=== PATIENT | male | born 1980 | race Caucasian/White ===

== ENCOUNTER 2019-06-29 10:26 | Outpatient (CLI) | payer OTHER ==
--- NOTE | 2019-06-29 12:57 | ULT ---
ULTRASOUND SOFT TISSUE OTHER: (Right axilla) HISTORY: A 38-year-old male with palpable abnormality in the right axilla. FINDINGS/IMPRESSION: Region of palpable concern in the right axilla demonstrates a 5 x 4 x 6 mm well-circumscribed nonshad owing solid-appearing nodule of unknown etiology. Clinical/pathologic correlation is recommended. POS: [facility]
== END 2019-06-29 10:27 | disposition home or self-care (01) ==
LOC: BICULT 10:26
PROVIDERS: ATTEND Student in an Organized Health Care Education/Training Program
DX: R59.0 Localized enlarged lymph nodes (principal)
CPT/HCPCS: 76999

== ENCOUNTER 2020-08-09 17:11 | Emergency (ER) | payer OTHER ==
[2020-08-09 17:43] LABS: #Lymphocytes 1.5 thou/uL (1.20-3.40); #Monocytes 0.5 thou/uL (0.11-0.59); #Neutrophils 14.7 thou/uL (1.40-6.50); %Basophils 0.1 % (0.0-1.0); %Eosinophils 0.2 % (0.0-10.0); %Lymphocytes 8.9 % (21.0-51.0); %Monocytes 2.8 % (0.0-10.0); Hemoglobin 16.1 g/dL (14.0-18.0); Mean Corpuscular HGB CONC 33.7 g/dL (32.0-36.0); Mean Corpuscular Hemoglobin 29.6 pg (27.0-31.0); Mean Corpuscular Volume 87.7 fL (78.0-98.0); Mean Platelet Volume 8.4 fL (7.4-10.4); Platelet Count 264 thou/uL (130-400); RBC Distribution Width 13.2 % (11.5-14.5); Red Blood Cell (RBC) Count 5.46 mill/uL (4.70-6.10); White Blood Cell (WBC) Count 16.7 thou/uL (4.8-10.8)
[2020-08-09 18:06] LABS: ALT (SGPT) 24 U/L (8-55); AST (SGOT) 21 U/L (5-34); Albumin 4.6 g/dL (3.5-5.0); Alkaline Phosphatase 95 U/L (40-110); Anion Gap 17 mmol/L (10-20); BUN (Urea Nitrogen) 18 mg/dL (8.9-20.6); Bilirubin, Total 0.5 mg/dL (0.2-1.2); CK (CPK) 178 U/L (30-200); Calc. Creatinine Clearance 0 mL/min (70-130); Calcium 9.9 mg/dL (7.8-10.44); Carbon Dioxide 19 mmol/L (22-29); Chloride 107 mmol/L (98-107); Globulin 4.4 g/dL (2.4-3.5); Glucose 119 mg/dL (70-105); Potassium 4.1 mmol/L (3.5-5.1); Sodium 139 mmol/L (136-145)
[2020-08-09 18:08] LABS: Acetaminophen Less than 6.0 mcg/mL (10.0-30.0); Alcohol Less than 10 mg/dL (Less than 10); Salicylate Less than 8.0 mg/dL (15.0-30.0)
== END 2020-08-09 19:13 ==
LOC: ERS 17:11
DX: F15.10 Other stimulant abuse, uncomplicated (principal); I10 Essential (primary) hypertension
CPT/HCPCS: 80053; 80307; 82550; 85025; 93005

== ENCOUNTER 2021-03-09 21:21 | Emergency (ER) | payer OTHER | END 2021-03-09 22:05 | disposition left against medical advice (07) | LOC: ERS 21:21 | DX: Z53.21 Procedure and treatment not carried out due to patient leaving prior to being seen by health care provider (principal) ==

== ENCOUNTER 2021-08-11 04:52 | Emergency (ER) | payer OTHER ==
[2021-08-11] MEDS ORDERED: Fentanyl 100 MCG/2 ML VIAL ONE (05:03)
[2021-08-11] MEDS ORDERED: Ondansetron PF 4 MG/2 ML Vial ONE (05:03)
[2021-08-11 05:20] LABS: #Eosinphils 0.2 thou/uL (0.0-0.7); #Lymphocytes 3.8 thou/uL (1.20-3.40); #Monocytes 0.8 thou/uL (0.11-0.59); #Neutrophils 10.5 thou/uL (1.40-6.50); %Basophils 0.3 % (0.0-1.0); %Lymphocytes 25.1 % (21.0-51.0); %Neutrophils 68.6 % (42.0-75.0); Hemoglobin 16.2 g/dL (14.0-18.0); Mean Corpuscular HGB CONC 34.1 g/dL (32.0-36.0); Mean Corpuscular Hemoglobin 31.1 pg (27.0-31.0); Mean Corpuscular Volume 91.1 fL (78.0-98.0); Mean Platelet Volume 8.1 fL (7.4-10.4); Platelet Count 301 thou/uL (130-400); RBC Distribution Width 12.1 % (11.5-14.5); Red Blood Cell (RBC) Count 5.22 mill/uL (4.70-6.10); White Blood Cell (WBC) Count 15.3 thou/uL (4.8-10.8)
[2021-08-11 05:41] LABS: ALT (SGPT) 144 U/L (8-55); AST (SGOT) 144 U/L (5-34); Albumin 4.2 g/dL (3.5-5.0); Alcohol Less than 10 mg/dL (Less than 10); Alkaline Phosphatase 91 U/L (40-110); Anion Gap 17 mmol/L (10-20); BUN (Urea Nitrogen) 22 mg/dL (8.9-20.6); Bilirubin, Total 0.4 mg/dL (0.2-1.2); Calc. Creatinine Clearance 0 mL/min (70-130); Calcium 9.7 mg/dL (7.8-10.44); Carbon Dioxide 22 mmol/L (22-29); Chloride 106 mmol/L (98-107); Estimated GFR 51; Globulin 4.1 g/dL (2.4-3.5); Glucose 119 mg/dL (70-105); Potassium 3.6 mmol/L (3.5-5.1); Protein, Total 8.3 g/dL (6.0-8.3); Sodium 141 mmol/L (136-145)
[2021-08-11] MEDS ORDERED: Morphine 4 MG/ML VIAL ONE ×2 (06:12→07:45)
[2021-08-11] MEDS ORDERED: Lidocaine 1% w/Epinephrine 1:100K 20 ML VIAL ONE (06:29)
[2021-08-11] MEDS ORDERED: Bacitracin 1 PK ONE (06:48)
[2021-08-11 07:36] LABS: SARS-CoV-2 NAA Rapid Test Not Detected (NotDetected)
== END 2021-08-11 08:50 | disposition short-term general hospital (02) ==
LOC: ERS 04:52
DX: S32.491A Other specified fracture of right acetabulum, initial encounter for closed fracture (principal); S22.32XA Fracture of one rib, left side, initial encounter for closed fracture; S22.31XA Fracture of one rib, right side, initial encounter for closed fracture; S82.001A Unspecified fracture of right patella, initial encounter for closed fracture; S51.011A Laceration without foreign body of right elbow, initial encounter; S22.018A Other fracture of first thoracic vertebra, initial encounter for closed fracture; I10 Essential (primary) hypertension; F17.210 Nicotine dependence, cigarettes, uncomplicated; V59.9XXA Occupant (driver) (passenger) of pick-up truck or van injured in unspecified traffic accident, initial encounter; Z20.822 Contact with and (suspected) exposure to COVID-19
CPT/HCPCS: 12001; 36415; 70450; 71260; 72125; 72170; 74177; 80053; 80307; 85025; 86850; 86900; 86901; 96374; 96375; 96376; J2270; J2405; J3010; U0002

== ENCOUNTER 2022-02-26 11:51 | Outpatient (CLI) | payer OTHER ==
[2022-02-26 13:15] LABS: #Basophils 0.1 10x3/uL (0.0-0.2); #Eosinphils 0.2 10x3/uL (0.0-0.5); #Monocytes 0.6 10x3/uL (0.0-1.1); #Neutrophils 5.4 10x3/uL (1.5-8.4); %Basophils 0.9 % (0.0-2.0); %Eosinophils 1.7 % (0.0-6.0); %Monocytes 7.3 % (0.0-10.0); %Neutrophils 62.8 % (40.0-75.0); Hemoglobin 13.3 g/dL (13.5-17.5); Mean Corpuscular HGB CONC 32.4 g/dL (32.0-36.0); Mean Corpuscular Hemoglobin 27.3 pg (27.0-33.0); Mean Corpuscular Volume 84.2 fl (81.2-95.1); Mean Platelet Volume 10.4 fl (7.4-10.4); Platelet Count 248 10x3/uL (150-450); RBC Distribution Width 15.1 % (11.5-14.5); Red Blood Cell (RBC) Count 4.87 10x6/uL (4.32-5.72); White Blood Cell (WBC) Count 8.6 10x3/uL (3.5-10.5)
== END 2022-02-26 11:52 | disposition home or self-care (01) ==
LOC: LABBT 11:51
PROVIDERS: ATTEND Specialist
DX: Z01.812 Encounter for preprocedural laboratory examination (principal); D17.79 Benign lipomatous neoplasm of other sites
CPT/HCPCS: 85025

== ENCOUNTER 2022-03-01 08:18 | Day surgery (SDC) | payer OTHER ==
[2022-02-28 14:29] VITALS: BMI 34.0
[2022-03-01] MEDS ORDERED: Acetaminophen 500 MG TAB ONE (08:56)
== END 2022-03-01 09:40 | disposition home or self-care (01) ==
LOC: SDC 08:18
PROVIDERS: ATTEND Specialist
DX: D17.1 Benign lipomatous neoplasm of skin and subcutaneous tissue of trunk (principal); Z53.8 Procedure and treatment not carried out for other reasons; Z79.899 Other long term (current) drug therapy

== ENCOUNTER 2022-05-07 16:20 | Emergency (ER) | payer OTHER ==
[~2022-05-07 16:20] MED LIST: Iopamidol 370 76% 100 ML VIAL ONE
[2022-05-07 16:48] LABS: #Eosinphils 0.1 thou/uL (0.0-0.7); #Lymphocytes 2.6 thou/uL (1.20-3.40); #Monocytes 0.7 thou/uL (0.11-0.59); #Neutrophils 6.3 thou/uL (1.40-6.50); %Basophils 0.5 % (0.0-1.0); %Eosinophils 1.2 % (0.0-10.0); %Neutrophils 64.4 % (42.0-75.0); Hemoglobin 13.1 g/dL (14.0-18.0); Mean Corpuscular HGB CONC 33.1 g/dL (32.0-36.0); Mean Corpuscular Hemoglobin 28.4 pg (27.0-31.0); Mean Corpuscular Volume 85.6 fl (78.0-98.0); Mean Platelet Volume 8.7 fL (7.4-10.4); Platelet Count 241 10x3/uL (130-400); RBC Distribution Width 14.4 % (11.5-14.5); Red Blood Cell (RBC) Count 4.61 mill/uL (4.70-6.10); White Blood Cell (WBC) Count 9.7 10x3/uL (4.8-10.8)
[2022-05-07 17:04] LABS: ALT (SGPT) 16 U/L (8-55); AST (SGOT) 17 U/L (5-34); Albumin 3.7 g/dL (3.5-5.0); Alcohol Less than 10 mg/dL (Less than 10); Alkaline Phosphatase 98 U/L (40-110); Anion Gap 12 mmol/L (10-20); BUN (Urea Nitrogen) 17 mg/dL (8.9-20.6); Bilirubin, Total 0.5 mg/dL (0.2-1.2); Calc. Creatinine Clearance 0 mL/min (70-130); Carbon Dioxide 24 mmol/L (22-29); Chloride 107 mmol/L (98-107); Estimated GFR 62; Globulin 4.3 g/dL (2.4-3.5); Glucose 115 mg/dL (70-105); Lipase 41 U/L (8-78); Potassium 3.7 mmol/L (3.5-5.1); Sodium 139 mmol/L (136-145)
[2022-05-07 17:12] LABS: PTT 24.3 sec (22.9-36.1); Prothrombin Time 13.6 sec (12.0-14.7)
[2022-05-07 17:22] LABS: Actual Bicarbonate (HCO3v) 23 mEq/L (22-28); Base Excess -1.2 mEq/L (-2.0 to +3.0); Calcium, Ionized (venous) 1.07 mmol/L (1.16-1.32); Chloride (VBG) 107 mmol/L (98-106); Hemoglobin (Hb) 13.7 g/dL (13.2-17.3); Potassium (VBG) 3.78 mmol/L (3.70-5.30); pH (venous) 7.42 (7.32-7.43)
[2022-05-07 22:32] LABS: Bacteria/HPF None Seen HPF (None Seen); Bilirubin Negative (Negative); Blood, Urine Negative (Negative); Clarity Clear (Clear); Glucose, Urine (Dipstick) Normal (Negative); Ketone, Urine Negative (Negative); Leukocyte Negative Leu/uL (Negative); Nitrite Negative (Negative); Protein, Urine (Dipstick) 50 mg/dL (Neg-Trace); RBC/HPF 0-3 HPF (0-3); Specific Gravity, Urine 1.031 (1.002-1.036); Squamous Epithelial 0-3 HPF (0-3); Urobilinogen Normal mg/dL (Less than 2); WBC/HPF 0-3 HPF (0-3); pH, Urine 6.5 (5.0-9.0)
[2022-05-07 22:36] LABS: Amphetamine Detected (NotDetected); Barbiturates Screen Not Detected (NotDetected); Benzodiazepine Screen Not Detected (NotDetected); Cocaine Metabolite Screen Not Detected (NotDetected); Methadone Not Detected (NotDetected); Methamphetamine Detected (NotDetected); Opiate Screen Not Detected (NotDetected); Oxycodone Screen Not Detected (NotDetected); Phencyclidine (PCP) Detected (NotDetected); THC/Cannabinoid Screen Detected (NotDetected); Tricyclic Screen Not Detected (NotDetected)
== END 2022-05-07 22:39 | disposition home or self-care (01) ==
LOC: EDBD 16:20 → ERS 16:20 → MERGE 16:20 → ERS 22:39
DX: S06.0X1A Concussion with loss of consciousness of 30 minutes or less, initial encounter (principal); S60.512A Abrasion of left hand, initial encounter; V49.9XXA Car occupant (driver) (passenger) injured in unspecified traffic accident, initial encounter; Z23 Encounter for immunization
CPT/HCPCS: 36415; 70450; 71045; 71260; 72125; 74177; 80053; 80306; 80307; 81003; 81015; 82805; 83605; 83690; 84146; 85025; 85610; 85730; 86850; 86900; 86901; 90471; 96374; G0390; Q9967

== ENCOUNTER 2022-06-24 16:39 | Inpatient (IN) | payer OTHER ==
[2022-06-24 17:28] LABS: #Basophils 0.1 thou/uL (0.0-0.2); #Eosinphils 0.1 thou/uL (0.0-0.7); #Monocytes 0.5 thou/uL (0.11-0.59); #Neutrophils 5.1 thou/uL (1.40-6.50); %Basophils 0.6 % (0.0-1.0); %Eosinophils 1.5 % (0.0-10.0); %Lymphocytes 24.8 % (21.0-51.0); %Monocytes 6.9 % (0.0-10.0); %Neutrophils 65.9 % (42.0-75.0); Hemoglobin 13.2 g/dL (14.0-18.0); Mean Corpuscular HGB CONC 32.1 g/dL (32.0-36.0); Mean Corpuscular Hemoglobin 27.3 pg (27.0-31.0); Mean Corpuscular Volume 85.1 fl (78.0-98.0); Mean Platelet Volume 11.5 fL (7.4-10.4); Platelet Count 243 10x3/uL (130-400); RBC Distribution Width 13.8 % (11.5-14.5); Red Blood Cell (RBC) Count 4.83 mill/uL (4.70-6.10); White Blood Cell (WBC) Count 7.8 10x3/uL (4.8-10.8)
[2022-06-24 17:41] LABS: Prothrombin Time 13.7 sec (12.0-14.7)
[2022-06-24 17:43] LABS: ALT (SGPT) 15 U/L (8-55); AST (SGOT) 21 U/L (5-34); Albumin 3.8 g/dL (3.5-5.0); Alkaline Phosphatase 92 U/L (40-110); Anion Gap 16 mmol/L (10-20); BUN (Urea Nitrogen) 20 mg/dL (8.9-20.6); Bilirubin, Total 0.6 mg/dL (0.2-1.2); Calc. Creatinine Clearance 0 mL/min (70-130); Calcium 8.7 mg/dL (7.8-10.44); Carbon Dioxide 20 mmol/L (22-29); Chloride 107 mmol/L (98-107); Estimated GFR 63; Globulin 3.9 g/dL (2.4-3.5); Glucose 104 mg/dL (70-105); Potassium 3.7 mmol/L (3.5-5.1); Protein, Total 7.7 g/dL (6.0-8.3); Sodium 139 mmol/L (136-145)
[2022-06-24 17:56] LABS: Acetaminophen Less than 10.0 mcg/mL (10.0-30.0); Alcohol Less than 10 mg/dL (Less than 10); CK (CPK) 148 U/L (30-200); Salicylate Less than 8.0 mg/dL (15.0-30.0)
[2022-06-24 18:09] LABS: CellaVision Operator ID LAB.MJL; Platelet Morphology Comment Platelets Normal; RBC Morphology Within Normal Limits
[2022-06-24 18:19] LABS: PTT 24.3 sec (22.9-36.1)
[2022-06-24] MEDS ORDERED: Acetaminophen 325 MG TAB ONE (18:21)
[2022-06-24] MEDS ORDERED: cefTRIAXone (ROCEPHIN) 2 GM VIAL ONE (18:21)
[2022-06-24] MEDS ORDERED: Vancomycin 1 GM/200 ML (FROZEN) BAG ONE (18:50)
[2022-06-24 20:11] LABS: Bacteria/HPF None Seen HPF (None Seen); Bilirubin Negative (Negative); Blood, Urine Negative (Negative); Clarity Clear (Clear); Glucose, Urine (Dipstick) Normal (Negative); Ketone, Urine Negative (Negative); Leukocyte Negative Leu/uL (Negative); Nitrite Negative (Negative); Protein, Urine (Dipstick) 50 mg/dL (Neg-Trace); RBC/HPF 0-3 HPF (0-3); Specific Gravity, Urine 1.016 (1.002-1.036); Squamous Epithelial 0-3 HPF (0-3); Urobilinogen Normal mg/dL (Less than 2); WBC/HPF 0-3 HPF (0-3); pH, Urine 5.5 (5.0-9.0)
[2022-06-24 20:20] LABS: Amphetamine Detected (NotDetected); Barbiturates Screen Not Detected (NotDetected); Benzodiazepine Screen Not Detected (NotDetected); Cocaine Metabolite Screen Not Detected (NotDetected); Methadone Not Detected (NotDetected); Methamphetamine Detected (NotDetected); Opiate Screen Not Detected (NotDetected); Oxycodone Screen Not Detected (NotDetected); Phencyclidine (PCP) Detected (NotDetected); THC/Cannabinoid Screen Detected (NotDetected); Tricyclic Screen Not Detected (NotDetected)
[2022-06-24] MEDS ORDERED: Ondansetron PF 4 MG/2 ML Vial IVP PRN (20:51)
[2022-06-24] MEDS ORDERED: Acetaminophen 325 MG TAB PO PRN (20:51)
[2022-06-24] MEDS ORDERED: Labetalol HCl 100 MG/20 ML VIAL SLOW IVP PRN (21:58)
[2022-06-24] MEDS ORDERED: hydrALAZINE 20 MG/ML VIAL SLOW IVP PRN (21:58)
[2022-06-24] MEDS ORDERED: Aspirin 81 mg Enteric Coated Tablet PO SCH (22:00)
[2022-06-24] MEDS ORDERED: Acetaminophen 500 MG TAB PO SCH (22:45)
[2022-06-24] MEDS ORDERED: traMADol HCl 50 MG TAB PO SCH (22:45)
[2022-06-25 00:08] VITALS: BMI 35.4
[2022-06-25] MEDS ORDERED: Vancomycin 1.5 GRAM/300 ML BAG 1.5 GM in Premix Bag 1 BAG IVPB SCH (00:30)
[2022-06-25 06:11] LABS: #Basophils 0.1 thou/uL (0.0-0.2); #Eosinphils 0.1 thou/uL (0.0-0.7); #Monocytes 0.6 thou/uL (0.11-0.59); #Neutrophils 3.1 thou/uL (1.40-6.50); %Basophils 1.2 % (0.0-1.0); %Eosinophils 2.4 % (0.0-10.0); %Monocytes 9.3 % (0.0-10.0); %Neutrophils 52.9 % (42.0-75.0); Hemoglobin 12.7 g/dL (14.0-18.0); Mean Corpuscular HGB CONC 30.1 g/dL (32.0-36.0); Mean Corpuscular Hemoglobin 26.4 pg (27.0-31.0); Mean Platelet Volume 11.4 fL (7.4-10.4); Platelet Count 230 10x3/uL (130-400); RBC Distribution Width 14.1 % (11.5-14.5); Red Blood Cell (RBC) Count 4.81 mill/uL (4.70-6.10); White Blood Cell (WBC) Count 5.9 10x3/uL (4.8-10.8)
[2022-06-25 06:33] LABS: Anion Gap 12 mmol/L (10-20); BUN (Urea Nitrogen) 16 mg/dL (8.9-20.6); Calc. Creatinine Clearance 158 mL/min (70-130); Calcium 8.6 mg/dL (7.8-10.44); Carbon Dioxide 19 mmol/L (22-29); Cardiac Risk 3.4 (Less than 4.5); Chloride 112 mmol/L (98-107); Cholesterol 108 mg/dl (< 200 Desired); Estimated GFR 85; Glucose 111 mg/dL (70-105); HDL Cholesterol 32 mg/dL (>60 Neg Risk); LDL Cholesterol, Calculated 66 mg/dL; Potassium 3.9 mmol/L (3.5-5.1); Sodium 139 mmol/L (136-145); Triglycerides 48 mg/dL (Less than 150)
[2022-06-25 06:51] LABS: Mean Corpuscular Volume 87.7 fl (78.0-98.0)
[2022-06-25 11:01] LABS: Vancomycin, Trough 13.6 ug/mL
[2022-06-25] MEDS ORDERED: VANCOMYCIN 2 GRAM/500 ML BAG 2 GM in Premix Bag 1 BAG IVPB SCH (12:00)
[2022-06-25] MEDS: Vancomycin 1.5 GRAM/300 ML BAG 1.5 GM in Premix Bag 1 BAG IVPB SCH (12:54)
[2022-06-25] MEDS ORDERED: Aspirin 81 mg Enteric Coated Tablet PO SCH (13:30)
[2022-06-25] MEDS ORDERED: Lorazepam 2 MG/ML VIAL SLOW IVP SCH (16:30)
[2022-06-25] MEDS ORDERED: Ketorolac Tromethamine 30 MG/ML VIAL IVP PRN (17:27)
[2022-06-26] MEDS: Vancomycin 1.5 GRAM/300 ML BAG 1.5 GM in Premix Bag 1 BAG IVPB SCH ×2 (00:12→12:30)
[2022-06-26] MEDS ORDERED: Metoprolol Tartrate 25 MG TAB PO SCH (09:00)
[2022-06-26] MEDS ORDERED: Aspirin 81 mg Enteric Coated Tablet PO SCH (09:00)
[2022-06-26 10:35] LABS: #Basophils 0.1 thou/uL (0.0-0.2); #Eosinphils 0.1 thou/uL (0.0-0.7); #Monocytes 0.5 thou/uL (0.11-0.59); #Neutrophils 4.4 thou/uL (1.40-6.50); %Lymphocytes 24.7 % (21.0-51.0); %Monocytes 7.2 % (0.0-10.0); %Neutrophils 64.8 % (42.0-75.0); Hemoglobin 13.5 g/dL (14.0-18.0); Mean Corpuscular HGB CONC 30.3 g/dL (32.0-36.0); Mean Corpuscular Hemoglobin 26.5 pg (27.0-31.0); Mean Corpuscular Volume 87.3 fl (78.0-98.0); Mean Platelet Volume 10.7 fL (7.4-10.4); Platelet Count 249 10x3/uL (130-400); RBC Distribution Width 13.9 % (11.5-14.5); White Blood Cell (WBC) Count 6.9 10x3/uL (4.8-10.8)
[2022-06-26 10:45] LABS: Anion Gap 11 mmol/L (10-20); BUN (Urea Nitrogen) 12 mg/dL (8.9-20.6); Calc. Creatinine Clearance 151 mL/min (70-130); Calcium 9.4 mg/dL (7.8-10.44); Carbon Dioxide 21 mmol/L (22-29); Chloride 111 mmol/L (98-107); Estimated GFR 80; Glucose 93 mg/dL (70-105); Sodium 139 mmol/L (136-145)
[2022-06-26 16:33] VITALS: BP 130/80; TEMP 97.3
== END 2022-06-26 18:35 | disposition home or self-care (01) | DRG 299 ==
LOC: ERS 16:39 → NEURO 20:51
PROVIDERS: ADMIT Internal Medicine; ATTEND Internal Medicine
DX: I82.431 Acute embolism and thrombosis of right popliteal vein (principal); G92.8 Other toxic encephalopathy; L03.115 Cellulitis of right lower limb; R45.851 Suicidal ideations; F41.9 Anxiety disorder, unspecified; F32.A Depression, unspecified; F17.210 Nicotine dependence, cigarettes, uncomplicated; F19.10 Other psychoactive substance abuse, uncomplicated; N18.2 Chronic kidney disease, stage 2 (mild); I12.9 Hypertensive chronic kidney disease with stage 1 through stage 4 chronic kidney disease, or unspecified chronic kidney disease; B18.2 Chronic viral hepatitis C; Z86.718 Personal history of other venous thrombosis and embolism; Z98.890 Other specified postprocedural states; Z90.49 Acquired absence of other specified parts of digestive tract
CPT/HCPCS: 36415; 70450; 71045; 80048; 80053; 80061; 80202; 80306; 80307; 81003; 81015; 82550; 83605; 84443; 85025; 85610; 85730; 87040; 87070; 87077; 87081; 87186; 87205; 87430; 93005; 93970; 94760; 96365; 96367; 97139; J0696; J1650; J3370; J3370-JW